=== PATIENT | female | born 1965 | race Caucasian/White ===

== ENCOUNTER 2025-01-19 09:31 | Day surgery (SDC) | payer MEDICARE, SELFPAY ==
[2025-01-17 16:03] VITALS: BMI 22.1
[2025-01-19 09:49] VITALS: BP 118/76; PULSE 66; RESP 18; TEMP 36.8; O2SAT 98
[2025-01-19] MEDS: LACTATED RINGERS 1000ML 1,000 ML 50 ML IV (10:06)
--- NOTE | 2025-01-19 10:19 | P.PNANES_ITS ---
[facility] Disclaimer: The information contained in this section may have been updated after the patient was seen, as this information can be updated by other users. Medical History (Updated 01/19/25 @ 10:04 by Niyah Norris RN) Seizure disorder ADHD Seasonal allergies tubal ligation planned Tonsillectomy planned Surgical History (Updated 01/19/25 @ 10:04 by Niyah Norris RN) Hx of cataract surgery H/O total hysterectomy Family History (Updated 01/19/25 @ 10:04 by Niyah Norris RN) Other Cardiac disease Social History (Updated 01/19/25 @ 10:05 by Niyah Norris RN) Smoking Status: Former smoker alcohol intake: never substance use type: denies use current occupational status: retired Travel in the last 8 weeks: None caffeine: Yes [facility] Anesthesia Checklist Patient Identification Patient Identification: Arm Band and Family Structural Data Admitted From: Home Planned Operative Procedure/s: colonoscopy Consent for Planned Operative Procedure(s) Verified: Yes Verified Documents: Surgical Consent and History and Physical NPO Status Verified Time NPO: 00:00 Additional verifications Patient : No Anesthesia Reactions: No Hx Blood Transfusions: No Blood Transfusion Reaction: No Cephalosporin Allergy: No Previous Colonoscopy: Yes Airway Assessment Mallampati Score:: Class II C-Spine Mobility Assessed: Yes TMJ Mobility Assessed: Yes Dentition: Good Dentition Neurological Assessment Level of Consciousness: Awake, Alert, Appropriate and Follows Commands Hx Seizures: No Numbness or tingling in extremities: No Anesthesia Plan Anesthesia Risk discussed: Yes ASA Class: II Anesthesia Type: MAC Preoperative Comments Pre-Operative Comments: HTN. Partial complex seizure, last one 12 years ago.
--- NOTE | 2025-01-19 11:22 | EXP.HP ---
History of Present Illness *Admission Date: 01/19/25 *Reason for visit:: Screening/surveillance colonoscopy *History of present illness: Mrs. Archuleta is a 59-year-old female who is here for screening colonoscopy. The examination is deemed medically necessary for screening colonoscopy. The patient has been seen, interviewed and examined prior to the procedure by both myself and the anesthesia provider. [facility] Disclaimer: The information contained in this section may have been updated after the patient was seen, as this information can be updated by other users. Medical History (Updated 01/19/25 @ 11:23 by Rosendo Irwin II, MD) MTHFR (methylene THF reductase) deficiency and homocystinuria Seizure disorder ADHD Seasonal allergies tubal ligation planned Tonsillectomy planned Surgical History (Updated 01/19/25 @ 10:04 by Niyah Norris RN) Hx of cataract surgery H/O total hysterectomy Family History (Updated 01/19/25 @ 10:04 by Niyah Norris RN) Other Cardiac disease Social History (Updated 01/19/25 @ 10:21 by Antione Macedo CRNA) Smoking Status: Former smoker alcohol intake: never substance use type: denies use current occupational status: retired Travel in the last 8 weeks: None caffeine: Yes Have you lived/traveled outside [place] in past 30 days?: No Contact w/someone who lives/traveled outside US past 30 days?: No Exposure to someone with infectious disease in past 14 days?: No Do you have a fever (greater than 100.4 F or 38 C)?: No Have you tested positive for COVID-19: Yes Exposed to someone with COVID-19 in past 14 days?: No Do you have a sore throat?: No Do you have a cough?: No Do you have any weakness?: No Are you experiencing any nausea/vomitting?: No Do you have any diarrhea?: No Are you experiencing any unusual bleeding?: No Do you have any muscle aches/pain?: No Do you have any abdominal pain?: No Are you experiencing loss of taste or smell?: No Review of Systems Review of Systems Review of systems (narrative): Negative *Cardiovascular Comments: Negative *Gastrointestinal Comments: Negative *Genitourinary Comments: Negative *Musculoskeletal Comments: Negative *Neurologic Comments: Negative Meds Home Medications and Allergies Home Medications ?Medication ?Instructions ?Recorded ?Confirmed ?Type fluticasone propionate 50 1 spray intranasal DAILY 01/17/25 01/19/25 History mcg/actuation nasal spray,suspension hydrochlorothiazide 12.5 mg tablet 12.5 mg PO DAILY 01/17/25 01/19/25 History lisdexamfetamine 50 mg capsule 50 mg PO DAILY 01/17/25 01/19/25 History (Vyvanse) sodium,potassium,mag sulfates 17.5 See Rx Instructions PO .COMPLEX 01/17/25 Rx gram-3.13 gram-1.6 gram oral soln #354 mL (Suprep Bowel Prep Kit) ascorbic acid (vitamin C) 25 mg 0 mg PO DAILY 01/19/25 01/19/25 History tablet cholecalciferol (vitamin D3) 50 50 mcg PO DAILY 01/19/25 01/19/25 History mcg (2,000 unit) tablet (Vitamin D3) New Prescriptions to Start Prescriptions: Allergies Allergy/AdvReac Type Severity Reaction Status Date / Time amoxicillin Allergy Swelling Verified 01/19/25 09:45 of Lip/Tongue/Throat tree nut Allergy Hives Verified 01/19/25 09:45 Exam Data for Last 24 hours Vital signs and Labs for Last 24 Hours: Temp Pulse Resp BP Pulse Ox O2 Del Method 98.3 F 66 18 118/76 98 Room Air 01/19/25 09:49 01/19/25 09:49 01/19/25 09:49 01/19/25 09:49 01/19/25 09:49 01/19/25 09:49 I & O for Last 24 hours: Intake & Output 01/16/25 01/17/25 01/18/25 01/19/25 23:59 23:59 23:59 23:59 Weight 133 lb *Routine HEENT Exam Head: Present normocephalic Eye: Present EOMI and PERRL ENT: Present mucous membranes moist *Routine Neck Exam Neck: Present supple *Routine Respiratory Exam Respiratory: Present CTA bilaterally *Routine Cardiovascular Exam Cardiovascular: Present RRR *Routine Abdominal Exam Abdominal: Present soft and normoactive bowel sounds; Absent tenderness *Routine Rectal Exam Rectal:: deferred *Routine Genitalia Exam Genitalia:: deferred *Routine Extremities Exam Extremities: Absent cyanosis, clubbing or edema *Routine Skin Exam Skin: Present warm; Absent rash *Routine Neurological Exam Neurological: Present alert and oriented X3 Assessment and Plan *Assessment and plan (1) Screening for colon cancer: Status: Acute Category: Medical Code(s): Z12.11 - Encounter for screening for malignant neoplasm of colon Plan A/P: 1. Screening colonoscopy is the preprocedural diagnosis. Last colonoscopy was 11 to 12 years ago. The patient will be anesthetized/sedated using MAC sedation. The patient has been seen and examined. Cardiac and lung assessment prior to the examination is stable. Proceed with planned screening/surveillance colonoscopy
[2025-01-19 11:32] VITALS: O2SAT 100
--- NOTE | 2025-01-19 11:35 | P.PCN_ITS ---
[facility] Procedure Note Date: 01/19/25 Time: 11:51 Procedure Note:: Colonoscopy Procedure Report: Colonoscopy with cold snare polypectomy Endoscopist: Rosendo Irwin II, MD Referring physician: Gina Loaiza MD, [address], [place] [address] Date of Procedure: January 19, 2025 Equipment: Olympus 190 variable stiffness pediatric colonoscope Sedation: MAC sedation Indication: Mrs. Archuleta is a 59-year-old female who is here for follow-up surveillance colonoscopy. Her last colonoscopy was 11 or 12 years ago at which time a couple of benign hyperplastic polyps were removed. She reports no abdominal pain, weight loss, change in her bowel habits or rectal bleeding. She reports no family history of colon cancer. Procedure: Prior to the procedure, a history and physical exam was performed, and patient's medications and allergies were reviewed. The risks, benefits and alternatives of the sedation and procedure were discussed with the patient. All questions were answered and informed consent was obtained. The patient was brought to the procedure room. Patient identification and proposed procedure were verified by the physician and the nurse. The patient was placed in a left lateral decubitus position and the scope was passed under direct vision. Throughout the procedure, the patient's blood pressure, pulse, and oxygen saturations were monitored continuously. The colonoscopy was accomplished without difficulty. The patient tolerated the procedure well. Findings: On digital rectal examination there was normal rectal tone. There were no external hemorrhoids. The colonoscope was introduced through the anal canal to the rectum and advanced to the cecum. The ileocecal valve and appendiceal orifice were identified. The scope was advanced a short distance into the ileum which appeared grossly normal. The scope was then withdrawn into the colon. There were 2 polyps (ascending x 1 (4 mm) and transverse x 1 (6 mm)). These were both removed via cold snare polypectomy. The remaining cecum, ascending and transverse colon and mucosa were grossly normal. There were very mildly scattered diverticuli throughout the descending and sigmoid colon (LEFT colon). The rectum itself was normal. Upon retroflexion within the rectum there were grade 1 internal hemorrhoids. The preparation was excellent throughout with [place] Preparation Score of 9. The cecal time was 12 minutes. Impression: 1. Diminutive colonic polyps x 2 2. Mild left-sided diverticulosis 3. Grade 1 internal hemorrhoids Plan: I will follow-up the polyp histology and recommend repeat surveillance colonoscopy again in 5 years based upon the pathology. I would recommend continuation of bulking psyllium fiber supplementation on a maintenance basis.
[2025-01-19 11:56] VITALS: BP 101/66; PULSE 68; RESP 18; O2SAT 98
[2025-01-19 12:06] VITALS: BP 99/63; PULSE 66; RESP 16; O2SAT 97
[2025-01-19 12:16] VITALS: BP 110/63; PULSE 65; RESP 16; O2SAT 99
[2025-01-19 12:24] VITALS: BP 109/71; PULSE 64; RESP 16; O2SAT 99
== END 2025-01-19 12:27 | disposition home or self-care (01) ==
PROVIDERS: Visit Provider Internal Medicine Gastroenterology
PROC: 0DJD8ZZ Inspection of Lower Intestinal Tract, Via Natural or Artificial Opening Endoscopic (ICD-10-PCS; CPT 45378; principal; 2025-01-19 11:00)
DX: Z12.11 Encounter for screening for malignant neoplasm of colon (principal); Z86.0100 Personal history of colon polyps, unspecified; K63.5 Polyp of colon; K57.30 Diverticulosis of large intestine without perforation or abscess without bleeding; K64.0 First degree hemorrhoids
CPT/HCPCS: 45385; J2704; J7120